=== PATIENT | male | born 1985 | race Caucasian/White ===

== ENCOUNTER 2021-11-17 15:44 | Outpatient (CLI) | payer OTHER, SELFPAY ==
--- NOTE | ~2021-11-17 | MR_ITS ---
EXAMINATION: MR ankle LT wo con DATE: 11/17/2021 16:34 INDICATION: Left Achilles tendon rupture TECHNIQUE: Magnetic resonance imaging (MRI) of the left ankle was performed without intravenous contr ast. Sequences included sagittal, coronal, and axial proton-density weighted fast spin echo without a nd with fat saturation. COMPARISON: None. FINDINGS: Medial ankle ligaments: Deep and superficial deltoid ligaments as well as the spring ligament are normal. Lateral ankle ligaments: The anterior and posterior inferior tibiofibular ligaments are normal. The anterior talofibular, calc aneofibular and posterior talofibular ligaments are normal. Tendons: Diffuse severe Achilles tendinosis. There is a full-thickness tear extending across the tendon approx imately 7 cm proximal to the calcaneal insertion and with 2 cm proximal retraction. Small fluid colle ction likely representing a post traumatic hematoma filling the tear defect. Mild tendinopathy and longitudinal split tear of the peroneus brevis tendon immediately distal to the level of the tip of the lateral malleolus. The peroneus longus tendon is normal. The tibialis anteri or and extensor hallucis longus and extensor digitorum longus tendons are normal. 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 Plantar fascia: Plantar aponeurosis is normal. Bones/other: Bone alignment is normal. Normal marrow signal throughout with no fracture, reactive edema or patholo gic marrow replacing process. Fluid: Physiologic amount fluid in the joint spaces. Prominent subcutaneous edema the posterior aspect of th e distal calf, ankle and hindfoot. IMPRESSION: 1. Severe Achilles tendinosis with full-thickness tear centimeter proximal to the calcaneal insertion . 2. Mild tendinopathy and longitudinal split of the peroneus brevis tendon. Reviewed, dictated and finalized at location A. IMPRESSION: 1. Severe Achilles tendinosis with full-thickness tear centimeter proximal to t he calcaneal insertion. 2. Mild tendinopathy and longitudinal split of the peroneus brevis tendon.
== END 2021-11-17 15:45 | disposition home or self-care (01) ==
DX: S86.012A Strain of left Achilles tendon, initial encounter (principal)
CPT/HCPCS: 73721